=== PATIENT | male | born 1955 | race African-American/Black ===

== ENCOUNTER 2021-03-13 12:30 | Emergency (ER) | payer OTHER ==
[~2021-03-13] VITALS: Ht 165.1 cm; Wt 58.1 kg
--- NOTE | ~2021-03-13 | EMS ---
[facility] [address] [place] [address] EMS Patient Care Report Name: ROMEL MAXWELL Room #: REG RICCI Neville#: [id number] Admission: 03/13/21 Attend Phys: Discharge: Date of : 51 Report #: [id number] THIS REPORT FOR: //name// Report Transmitted: 03/13/2021 13:58 EMS Care Summary [place], [place]/[facility] Incident [id number] @ 03/13/2021 11:29 Incident Location [address] [place] [address] Patient ROMEL MAXWELL Male, 65 Years 1955 Patient Address [address] [place] [address] [place] [id number] Patient History Hypertension (HTN),Alcohol Abuse, Patient Allergies Penicillin allergy, Patient Medications None Reported, Chief Complaint CONFUSION, STRANGE ACTIONS Disposition Transported No Lights/[place] Dispatch Reason Psychiatric Problem/Abnormal Behavior/Suicide Attempt Transported To [facility] Narrative UPON ARRIVAL, FAMILY AND DENTAL AMALGAM PROCESSOR IN HALLWAY OUTSIDE PT APT. THEY STATE PT HAS BEEN CONFUSED, DRINKING ALCOHOL FOR A COUPLE DAYS AND SMEARED FECES ON THE WALL IN HIS APT. THEY WOULD LIKE HIM EVALUATED. [facility] [address] [place] [address] EMS Patient Care Report Name: ROMEL MAXWELL Room #: DANIA Neville#: [id number] Admission: 03/13/21 Attend Phys: Discharge: Date of : 51 Report #: [id number] PT IS STANDING IN APT. PT IS ALERT AND COOPERATIVE. PT STATES HE IS FINE AND HE SHOULD BE ABLE TO DRINK AT HOME. PT DENIES PAIN OR TROUBLE BREATHING. PT DENIES FALLS OR INJURIES. PT DENIES DRUG USE. PT ADMITS TO DRINKING ALCOHOL YESTERDAY AND TODAY. PT DENIES SUICIDAL OR HOMICIDAL THOUGHTS. PT AMBULATING WITH HIS WALKER NO PROBLEM. SAT ON COT. NO PROBLEMS EN ROUTE. Initial Vitals @12:04P: 86,R: 14,BP: 124/76,Pain: 0/10,GCS: 14,SpO2: 100,Revised Trauma: 12, @11:54P: 86,R: 16,Pain: 0/10,GCS: 14, @12:17P: 84,R: 14,BP: 120/72,Pain: 0/10,GCS: 14,Revised Trauma: 12, Assessments @11:54MENTAL:Confused,Time Oriented,SKIN:HEENT:Head/Face: No Abnormalities,Neck/Airway: No Abnormalities,LUNG SOUNDS:General: No Abnormalities,Left Upper: No Abnormalities,Right Upper: No Abnormalities,Left Lower: No Abnormalities,Right Lower: No Abnormalities,ABDOMEN:General: No Abnormalities,Left Upper: No Abnormalities,Right Upper: No Abnormalities,Left Lower: No Abnormalities,Right Lower: No Abnormalities,PELVIS//GI:Incontinence,EXTREMITIES:Left Arm: No Abnormalities,Right Arm: No Abnormalities,Left Leg: No Abnormalities,Right Leg: No Abnormalities,PULSE:NEURO:No Abnormalities, Impression Behavioral/psychiatric episode Timeline 11:29,Call Received 11:29,Dispatch Notified 11:29,Dispatched 11:29,En Route 11:49,On Scene 11:53,At Patient 11:54,BP: / M,PULSE: 86,RR: 16 R,SPO2: Ox,ETCO2: ,BG: ,PAIN: 0,GCS: 14, 12:02,Depart Scene 12:04,BP: 124/76 M,PULSE: 86,RR: 14 R,SPO2: 100 Ox,ETCO2: ,BG: ,PAIN: 0,GCS: 14, 12:17,BP: 120/72 M,PULSE: 84,RR: 14 R,SPO2: Ox,ETCO2: ,BG: ,PAIN: 0,GCS: 14, 12:26,At Destination 12:41,Call Closed Disclaimer v1.1 Copyright 2020 [employer] This EMS Care Summary contains data elements from the applicable legal record [address] [address] EMS Patient Care Report Name: FOX MAXWELLONSO Room #: REG RICCI Neville#: [id number] Admission: 03/13/21 Attend Phys: Discharge: Date of : 51 Report #: [id number] (which may be displayed differently). It is designed to provide pertinent information for the following purposes: continuity of care, clinical quality, and state data reporting. The complete legal record is available to ED staff and administrators of the receiving hospital in [employer] Patient Tracker. All data is provided "as is."
[2021-03-13 13:08] LABS: HEMATOCRIT 35.1 % (42.0-52.0); HEMOGLOBIN 11.9 gm/dL (14.0-18.0); MCH 31.7 pg (26.0-34.0); MCHC 33.9 g/dL (28.0-37.0); MCV 93.5 fL (80.0-100.0); PLATELET COUNT 224 thou/uL (150-400); RBC 3.76 mil/uL (4.50-6.00); WBC 7.4 thou/uL (4.0-11.0)
[2021-03-13 13:12] LABS: CALCIUM 9.1 mg/dL (8.5-10.1); CREATININE 1.2 mg/dL (0.7-1.3); POTASSIUM 3.4 mmol/L (3.5-5.1)
[2021-03-13 13:18] LABS: ALBUMIN 3.1 g/dL (3.4-5.0); TOTAL BILIRUBIN 0.6 mg/dL (0.2-1.0); TOTAL PROTEIN 9.6 g/dL (6.4-8.2)
[2021-03-13 13:45] LABS: ABSOLUTE NEUTROPHILS 4.1 thou/uL (1.4-8.2)
[2021-03-13 14:27] LABS: URINE BILIRUBIN NEGATIVE (Negative); URINE BLOOD NEGATIVE (Negative); URINE CLARITY CLEAR; URINE COLOR YELLOW; URINE GLUCOSE-RANDOM* NEGATIVE (Negative); URINE KETONES NEGATIVE (Negative); URINE LEUKOCYTES-REFLEX NEGATIVE (Negative); URINE NITRITE-REFLEX NEGATIVE (Negative); URINE PROTEIN (DIPSTICK) NEGATIVE (Negative); URINE SPECIFIC GRAVITY <= 1.005 (1.005-1.035); URINE UROBILINOGEN 0.2 E.U./dl (0.2-1.0)
[2021-03-13 14:37] LABS: AMP/METHAMP Negative (Negative); BARBITURATES Negative (Negative); BENZODIAZEPINES Negative (Negative); COCAINE Negative (Negative); METHADONE Negative (Negative); OPIATES Negative (Negative); PCP Negative (Negative)
[2021-03-13] MEDS ORDERED: POTASSIUM20 PO (16:59)
[2021-03-13] MEDS ORDERED: VITAMIN B-1100 M2 PO (16:59)
[2021-03-13] MEDS ORDERED: SYNTHROID50 MCG PO (17:00)
[2021-03-13] MEDS ORDERED: NORVASC10 MG PO (17:00)
[2021-03-13] MEDS ORDERED: HYDROCHLOROTHIA25 M1 PO (17:00)
[2021-03-13] MEDS ORDERED: FOLIC ACID1 MG PO (17:01)
[2021-03-13 17:20] VITALS: BP 110/58
--- NOTE | 2021-03-14 15:19 | EKG ---
[address] [address] ELECTROCARDIOGRAM REPORT Name: ROMEL MAXWELL Room #: JACQUIE Neville#: [id number] Admission: 03/13/21 Attend Phys: Discharge: 03/13/21 Date of : 51 Report #: [id number] [facility] ED Test Date: 2021-03-13 Test Time: 14:57:14 Pat Name: ROMEL MAXWELL Department: Room: Gender: Editor: JAMES : 1955 Requested By: Dorian Emerson Order Number: [id number] MD: Diego Granda Measurements Intervals [place] Rate: 86 P: 69 NV: 137 QRS: 48 QRSD: 78 T: 213 QT: 357 QTc: 427 Interpretive Statements Sinus rhythm Borderline repolarization abnormality No previous ECG available for comparison Electronically Signed On 03-14-2021 15:19:09 CDT by Diego Granda [email or web address] <ELECTRONICALLY SIGNED> By: Diego Granda MD, [facility] 03/14/21 1519 1457 1457 Diego Granda MD, FACC /EPI
== END 2021-03-13 17:42 ==
LOC: ER 12:30
PROVIDERS: Physician Assistant
DX: F10.129 Alcohol abuse with intoxication, unspecified (principal); Z20.822 Contact with and (suspected) exposure to COVID-19; I10 Essential (primary) hypertension; Z88.0 Allergy status to penicillin; Y90.9 Presence of alcohol in blood, level not specified

== ENCOUNTER 2021-03-13 16:06 | Inpatient (IN) | payer OTHER ==
[~2021-03-13] VITALS: Ht 165.1 cm; Wt 60.7 kg
[2021-03-13] MEDS ORDERED: POTASSIUM20 PO (16:59)
[2021-03-13] MEDS ORDERED: VITAMIN B-1100 M2 PO (16:59)
[2021-03-13] MEDS ORDERED: HYDROCHLOROTHIA25 M1 PO (17:00)
[2021-03-13] MEDS ORDERED: SYNTHROID50 MCG PO (17:00)
[2021-03-13] MEDS ORDERED: NORVASC10 MG PO (17:00)
[2021-03-13] MEDS ORDERED: FOLIC ACID1 MG PO (17:01)
[2021-03-13 18:17] VITALS: BP 129/77
--- NOTE | 2021-03-13 18:54 | NUR ---
1825 NEW ADMIT FROM HOME BROUGHT TO ER FOR BIZZARE BEHAVIORS; PATIENT'S HOME HAD FECES AND URINE ALL OVER APARTMENT. PATIENT HAS A HX OF ALCOHOL ABUSE HIS ALCOHOL LEVEL WAS 154 AT NOON TODAY IN ER. PATIENT APPEARANCE WAS UNKEPT CLOTHES WAS SOAKED WITH URINE AND BLUE SLIPPERS HAD FECES ON THEM. PATIENTS ABDOMEN SOFT BOWEL SOUNDS PRESENT PATIENTS LUNGS CLEAR. PATIENT CAME TO UNIT WE GAVE HIM HIS DINNER THEN PUT HIM IN THE SHOWER AND WASHED HIS CLOTHING. PATIENT ALERT ORIENTED TIMES 4 DENIES SI/HI/AH/VH AT PRESENT. WILL CONTINUE TO MONITOR PATIENT FOR SAFETY AND BEHAVIORS.
[2021-03-13 20:32] VITALS: BP 105/68
[2021-03-13 20:46] LABS: CHOLESTEROL 177 mg/dL (<200); HDL CHOLESTEROL 28 mg/dL (>40); LDL CHOLESTEROL 118 mg/dL (<100); TC:HDL 6.3 Ratio (Not establshd); TRIGLYCERIDE 159 mg/dL (<150); VLDL 32 mg/dL (<40)
[2021-03-13 22:23] VITALS: BP 105/68
[2021-03-13 23:40] VITALS: BP 122/74
[2021-03-14 03:41] VITALS: BP 128/79
--- NOTE | 2021-03-14 04:55 | NUR ---
Assumed care on 03/13/21 @ 1900, seated in the day room. Signed admission paperwork, posed for photo for chart. Cooperative with assessment, compliant with medication. A&Ox4, Retired to bed @ HS after snacks. Will continue to monitor for safety and comfort as per unit protocol.
[2021-03-14 05:37] LABS: FOLIC ACID 13.8 ng/mL (8.6-58.9)
[2021-03-14 06:09] LABS: GLYCOHEMOGLOBIN (HGB A1C) 5.5 % (4.8-5.6)
[2021-03-14 10:25] VITALS: BP 118/74
[2021-03-14 10:39] VITALS: BP 118/74
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
--- NOTE | 2021-03-14 14:27 | NUR ---
1420 RESUMMED CARE ALLIE OVERNIGHT SHIFT THIS AM, PATIENT IN ROOM LYING QUIET. PATIENT GOT UP CAME TO DAY ROOM FOR BREAKFAST TOOK MEDICATION WITHOUT INCIDENCE. PATIENT DENIES SI/HI/AH/VH AT PRESENT PATIENT HAS NO TREMORS AND STATES HE SLEPT VERY WELL. PATIENTS ABDOMEN SOFT BOWEL SOUNDS PRESENT PATIENTS LUNGS CLEAR. PATIENT CALM COOPERATIVE PARTICIPATED IN GROUPS AFFECT BRIGHTER THEN YESTERDAY. WILL CONTINUE TO MONITOR PATIENT FOR SAFETY AND BEHAVIORS.
--- NOTE | 2021-03-14 15:00 | NUR ---
JEFF and Dr. Fan spoke to patient's daughter Vandana Briones who informed that she is willing to be involved with patient's care but he has told her he "does not want her in his business." JEFF and Dr. Fan spoke to patient who informed that he does want his daughter involved. He gave verbal permission to speak with her. Vandana informed that she will be in [place] from March 18 thru March 28. She asked that we contact her sister Sylvia Briones [phone] during this time. JEFF completed assessment and treatment plan. SW team will remain available.
[2021-03-14 19:46] VITALS: BP 128/78
[2021-03-14 23:00] VITALS: BP 132/76
[2021-03-15 03:00] VITALS: BP 124/81
[2021-03-15 09:31] VITALS: BP 115/65
[2021-03-15 10:15] VITALS: BP 115/65
--- NOTE | 2021-03-15 11:26 | NUR ---
1125 RESUMMED CARE FROM OVERNIGHT SHIFT THIS AM, PATIENT IN ROOM LYING QUIET IN BED. PATIENT ALERT ORIENTED TIMES 3 PATIENT DENIES SI/HI/AH/VH AT PRESENT. PATIENT HAS NOT DISPLAYED ANY TREMORS WALKED WITH OT DID WELL. PATIENTS ABDOMEN SOFT BOWEL SOUNDS PRESENT, PATIENTS LUNGS CLEAR. PATIENT CALM COOPERATIVE PARTICIPATES IN GROUPS WILL CONTINUE TO MONITOR PATIENT FOR SAFETY AND BEHAVIORS.
--- NOTE | 2021-03-15 12:35 | NUR ---
Nutrition: Vitamin D 33. REC vitamin D supplementation
[2021-03-15 17:06] LABS: HIV ANTIBODY Non Reactive (Non Reactive)
[2021-03-15 19:57] VITALS: BP 125/74
[2021-03-15 21:29] VITALS: BP 125/74
--- NOTE | 2021-03-15 21:53 | NUR ---
PT CARE WAS RESUMED AT 1900. PATIENT WAS SITTING IN THE DAY AREA VERY CALM. HE DENIES PAINS AT THIS TIME. ABLE TO VERBALIZE NEED. HE DENIES ANY SI/AVH/ HI AND NO SKIN ISSUED NOTED AT THIS SHIFT. LUNGS ARE CLEAR BS ACTIVE X 4QUADS. HE REQUESTED FOR HIS PRN TRAZODONE FOR SLEEP AND MED WAS ADMINISTED WITHOUT ANY CONCERN. HE SWALLOWED MED WHOLE. PT IS FALL PRECAUTION, NON SKID SOCK ON, BED WAS IN LOW POSITION, ALARM ON, BED IS LOCK AND SIDE RAILS ARE UP. NURSES CONTUNED TO MONITOR Q12 MINUTES PER PROTOCOL. URINALS AT REACH.
[2021-03-15 22:11] LABS: SYPHILIS AB Non Reactive (Non Reactive)
[2021-03-16 10:03] VITALS: BP 135/85
--- NOTE | 2021-03-16 13:59 | NUR ---
JEFF met with Pt in his room concerning DPOA paper work. Pt stated he wanted his daughters Michelle Briones and Sylvia Briones to be his DPOA's. Pt was able to explain what a DPOA was. Pt stated "It's for someone to make decisions for me". JEFF contacted Michelle about being the Pt's DPOA. Michelle was in agreement. JEFF contacted Sylvia also. Sylvia did not answer, a message requesting a call back was left on the VM. Pt was able to complete the DPOA paperwork and it was notirized. A copy was given to the Pt and another placed in the chart. JEFF emailed a copy to Michelle at [email or web address]
--- NOTE | 2021-03-16 16:11 | NUR ---
NOTED TO BE GUARDED AND DEFENSIVE WHEN INTERACTING WITH NURSING STAFF WHEN PROMPTED TO GET OUT OF BED TO ATTEND AM GROUP STATES "WHY I'M NOT LIKE THOSE OTHER PEOPLE THEY DON'T EVEN KNOW AURORAER OWN NAME" LIMITED INSIGHT INTO INCIDENTS LEADING TO ADMIT STATING "I'M NOT SURE WHY I AM HERE" DENIES SI/SH/HI. DENIES ACUTE ANXIETY STATING "THE ONLY THING THAT MAKES ME NERVOUS IS BEING HERE-I WOULD BE FINE IF I WASN'T HERE" DENIES PAIN/DISCOMFORT-GAIT SLOW BUT STEADY WITH USE OF ROLLER WALKER-DENIES N/V-DIAPHORESIS,TREMOR. APPETITE GOOD. BP 135/80-REPORTS SLEEP "GOOD" REFUSED 0900 GROUP-DID COME TO PM RT GROUP BUT SAT AWAY FROM PEERS WITH NO ACTIVE PARTICIPATION NOTED.
[2021-03-16 19:47] VITALS: BP 142/77
[2021-03-16 20:00] VITALS: BP 135/85
--- NOTE | 2021-03-17 01:50 | NUR ---
PT CARE WAS RESUMED AT 1900. PATIENT IS ALERT AND ORIENTED. AMBULATES AND ABLE TO VERBALIZE SOME NEED. LUNGS ARE CLEAR ON ASSESSMENT AND HE DENIES,SI/AVH,HI, AND PAINS . NO SKIN ISSUED NOTED THIS SHIFT.CONTINENT OF B/B BS IS ACTIVE X4 QUAD.BED IS LOW, ALARM IN PLACE, PT HAS A NON SKID SOCKS ON. NO CONCERN NOTED AT THIS TIME. Q [address] AND SNACK WAS OFFERED.
[2021-03-17 09:14] VITALS: BP 107/70
--- NOTE | 2021-03-17 16:32 | NUR ---
PATIENT HAS BEEN UP, AND OUT ON THE UNIT, AMBULATE WITH ASSIST OF ROLLER WALKER. PATIENT IS ALERT, AND ORIENTED X 3-4, ABLE TO VOICE NEED. PATIENT TOOK ALL MEDICATION WHOLE WITHOUT DIFFICULTY. HE IS EATING MEALS, AND DRINKING FLUID WELL. PATIENT DENIES SUICIDA/HOMICIDAL IDEATION, HE DENIES DEPRESSION/ANXIETY, DENIES HAVING PHYSICAL PAIN. AFFECT IS FLAT/BLUNTED, MOOD IS DEPRESSED. PATIENT CAN BE IRRITABLE AT TIMES. HE PARTICIPATES IN GROUP THERAPY, CAN BE INTRUSIVE AT TIMES. NO SIGN OF ACUTE DISTRESS NOTED AT THIS TIME, WILL MONITOR FOR SAFETY.
[2021-03-17 19:32] VITALS: BP 151/67
[2021-03-17 21:30] VITALS: BP 151/67
--- NOTE | 2021-03-18 03:15 | NUR ---
PATINET CARE WAS RESUMED ON 1899. HE IS IN THE DINING AREAS SOCILIZING WITH OTHER PATINETS. HE DENIES ANY PAINS,SI/ AVH,HI . LUNGS ARE CLEAR BS ACTIVE X 4 QUADS. BED IS LOW,LOCKED AND ALARN IN PLACE. NO ISSUE NOTED THIS SHIFT WITH PATINETS.ABLE TO VERBALIZE ANY CONCERNS.STAFF CONTINUES TO MONITOR Q 12 PER PROTOCOL.
--- NOTE | 2021-03-18 06:36 | NUR ---
PT SLEPT THROUGH THE NIGHT.HE WAS MONITOTRED Q12 MINUTES PER UNIT PROTOCOL. CALM AND NO ISSUES IDENTIFIED. HE WOKE UP THIS AM USING HIS WALKER, SOCKS ON, AND WALKED OUT OF HIS RROM SHIRTLESS. NURSE APROACHED HIM FOR ASSISTANCE AND HE WAS USING SOME SLUR 'F'WORD. ANOTHER NURSE BROUGHT A SHIRT WHILE THIS NURSE WAS DIRECTING HIM BACK INTO THE ROOM. HE WAS ASSISTED WITH TRANSFER AND WEARING ON HIS SHIRT. CONTINUE CARE AND MONITOR
[2021-03-18 10:10] VITALS: BP 123/66
--- NOTE | 2021-03-18 18:06 | NUR ---
Alert and orientated X4. Slightly irritated this AM but calm and pleasant remainder of day. Stayed calm when another pt grabbed his hand and cup of H20. Denies SI/HI. Breath sounds clear. Reg HR auscultated. Color pink with brisk capillary refill and palpable peripheral pulses. Incontinent this AM, continent remainder of day. Active bowel sounds over soft, flat abdomen. States he had BM this AM. States diarrhea resolved. Ambulating with regular, steady gait with walker.
[2021-03-18 20:56] VITALS: BP 125/85
[2021-03-18 21:10] VITALS: BP 125/85
--- NOTE | 2021-03-19 03:34 | NUR ---
MR. MAXWELL' CARE WAS ASSUMED 03/18/21 @ 1900. HE WAS SPENDING THE EVENING IN THE DAYROOM WATCHING TELEVISION, "CAN I HAVE THE REMOTE, I NEED THE MUSIC AWARDS, THAT'LL BE SOME GOOD ENTERTAINMENT FOR TONIGHT." PATIENT IS A & O X 4. SKIN WARM AND DRY, RESPIRATIONS EVEN AND NON-LABORED, LUNGS CTA. ABD SOFT AND NON-TENDER, NO FURTHER REPORTS OF DIARRHEA. PATIENT WAS CALM, COOPERATIVE AND INTERACTIVE THIS EVENING. DENIES SI/HI/AVH. HE WAS WANTING SOMETHING SWEET TO DRINK, ASKING FOR SODA. MADE HIM A CUP OF TEA WITH SWEET & LOW. AFTER THE TELEVISION SHOW WAS OVER HE VOLUNTARILY WENT TO BED, VOCALIZED NO OTHER NEEDS. STAFF WILL CONTINUE TO ROUND Q 12 MIN PER [facility] POLICY AND INTERVENE NEEDED. STAFF JT DIAZ
[2021-03-19 09:35] VITALS: BP 122/71
--- NOTE | 2021-03-19 11:33 | NUR ---
RT Progress Note- Adithya has been present in the milieu each day, however, he has been avoidant of groups. He explains that this is because, "these people aren't like me. I don't need to be here." Adithya had not participated in recreation therapy since his admission, however participated AM of 03/19 with encouragement from other staff. RESEARCH FELLOW will continue to encourage this.
--- NOTE | 2021-03-19 13:41 | NUR ---
Alert and orientated X4. Denies SI/HI. States he wants to go home. Breath sounds clear. Reg HR auscultated. Color pink with brisk capillary refill and palpable peripheral pulses. No edema noted. Incontinent of large amt yellow urine, also continent of yellow urine. Active bowel sounds over soft, flat abdomen. States he had formed BM last night. AMbulates with walker with regular, steady gait. Currently resting in bed without s/o distress.
--- NOTE | 2021-03-19 14:16 | NUR ---
03/18/[address] Roa paticipated in a family meeting with Sylvia Ross and the Pt. Treatment and discharge recommedations were discussed during this meeting. It was recommended that Pt go into a usp setting as it would provide needed structure to increase the Pt's quality of life. Pt did not agree or disagree with the plan. However Pt expressed that he was able to care for himself. Although concerns of ETOH abuse and self care issues were discussed with the Pt. Vandana and Sylvia both expressed agreement with the need for a LTC placement. JEFF will send out referrals to LTC facilities. JEFF will continue to follow
--- NOTE | 2021-03-19 17:40 | NUR ---
Referral sent to the following: [facility] Kierra Rizvi will follow up
[2021-03-19 20:56] VITALS: BP 122/71
--- NOTE | 2021-03-20 04:43 | NUR ---
CARE ASSUMED AT 1900 03/20/2021. PATIENT WAS A&O X4, SKIN W&D, LUNGS CTS, HEART RRR. AMBULATORY WITH WALKER WITHOUT DIFFICULTY. CALM, COOPERATIVE, FOCUSED ON DISCHARGE, "I NEED TO TALK TO THE DOCTOR IN THE MORNING TO FIND OUT WHEN I GET TO GO HOME." ATE 100% OF HS SNACK. NO DISRUPTIVE BEHAVIORS DISPLAYED. STAFF WILL CONTINUE TO MONITOR PER [facility] PROTOCOL, AND INTERVENE NEEDED.
[2021-03-20 08:49] VITALS: BP 119/62
--- NOTE | 2021-03-20 17:43 | NUR ---
Assumed pt care at 0700. pt was alert and oriented x4. Assessments completed, vss. pt took meds whole no difficulty noted. Ambulates with a walker. No sign acute distress noted upon assessments. No c/o pain, denies si/hi. Participated in groups. calm and co-operative with care. Meds administered as ordered. Pt stated his goal is to go home. At this time pt is in the day room watching TV. will continue to monitor.
[2021-03-20 20:17] VITALS: BP 138/80
--- NOTE | 2021-03-21 02:28 | NUR ---
ASSUMED CARE OF PATIENT AT 1900 03/20/2021, PATIENT IN DAYROOM WATCHING TELEVISION. A&O X4, SINK WARM & DRY, LUNGS CTA, RESP NON-LABORED, HEART RRR, ABD SOFT + BS, DENIES N/V/D, NO COUGH. PATIENT REPORTED HAVING VISITORS TODAY AND THINGS WERE GOING VERY GOOD. DENIES SI/HI, AVH. INTERACTING WITH STAF AND PEERS. MR. MAXWELL IS VERY OBSERVANT OF PEERS AND REPORTS HOW THEY HAVE BEEN DURING THE DAY. HIS MOOD HAS BEEN CALM AND COOPERATIVE, WITH A PLESANT AFFECT. HAS BEEN RESTING WELL AND STAFF WILL CONTINUE TO MONITOR Q 12 MIN PER [facility] PROTOCOL AND INTERVENE NEEDED.
[2021-03-21 09:01] VITALS: BP 122/54
[2021-03-21 10:18] VITALS: BP 122/54
--- NOTE | 2021-03-21 10:42 | NUR ---
ASSUMED CARE AT 0700 THIS MORNING. PT. STABLE. HE IS OUT FOR BREAKFAST AND MORNING GROUP. HE IS AAOX4, PLEASANT AND COOPERATIVE. HE TAKES HIS MORNING MEDICATIONS WHOLE WITHOUT PROBLEMS NOTED. DR. MARI AND Heath TOVAR N.P. BOTH SPOKE WITH PATIENT THIS MORNING. HE DOES RETURN TO HIS ROOM AFTER GROUPS AND RESTS IN HIS BED. WILL CONTINUE TO MONITOR.
--- NOTE | 2021-03-21 16:22 | NUR ---
SW met with Pt on to discuss placement. Pt believes he is able to return to his home and live independently. Pt showed no insight concerning self care and safety. Sw discussed issues of Pt incontince of bowels and conditions of his home. Pt admitted that having stool all over his apartment was not hygenic and unhealthy. Pt minimized the concerns saying he only had a " little issue with diarrhea". SW provided emotional support to the Pt. Pt was informed the recommendation was for 24hr supervision and support. Pt believes a placement will be like prision. SW educated Pt on fpc, Pt rights, and encouraged positive thinking. Sw will continue to follow
--- NOTE | 2021-03-21 17:03 | NUR ---
JEFF faxed referral to [facility]
[2021-03-21 19:29] VITALS: BP 132/76
[2021-03-21 22:48] VITALS: BP 132/76
--- NOTE | 2021-03-21 23:06 | NUR ---
Assumed care from day nurse at 1910, Pt is A/O x 3, initially sitting in day room watching tv and conversing with staff, Pt affect is pleasant, lungs clear, HRR, abd soft non tender, denies pain, pt teaching on Trazadone, pt received trazadone last night, asked him if he would like his dose again tonight since it's PRN, Pt was okay with that. no other HS medications prescribed. Will continue to monitor throughout shift.
[2021-03-22 08:57] VITALS: BP 120/76
[2021-03-22 11:01] VITALS: BP 120/76
--- NOTE | 2021-03-22 15:12 | NUR ---
Assumed pt care at 0700. pt was alert and oriented x4. Assessments completed, vss. pt was calm and co-operative with care. pt took meds whole, no difficulty noted. Denies si/hi. At this time no c/o pain. pt ambulates with walker. No of sign acute distress noted upon assessments. Meds administered as ordered. PT is goal directed towards going home. Will continue to monitor pt.
[2021-03-22 19:40] VITALS: BP 127/76
--- NOTE | 2021-03-23 00:45 | NUR ---
CARE OF PATIENT ASSUMED AT 1900 03/22/2021. MR. MAXWELL WAS SITTING IN THE DAYROOM WATCHING TELEVISION. RELAYED HE HAD A GOOD DAY, HIS DAUGHTER HAD COME TO VISIT. A&O X 4, LUNGS CTA, HEART SOUNDS RRR, SKIN WARM AND DRY. PATIENT CURRENTLY INCONTIENT OF URINE. REPORTED BM THIS A.M. AMBULATORY IWTH WALKER. COMPLIANT WITH HS SNACK AND TOOK PRN SLEEP MEDICATION. CALM AND COOPERATIVE, NO NEGATIVE BEHAVIORS, HAS RESTED WITHOUT DISTURBANCE. STAFF WILL CONTINUE TO MONITOR PER [facility] PROTCOL.
--- NOTE | 2021-03-23 04:16 | NUR ---
PATIENT INCONTINENT. BRIEF AND CLOTHING CHANGED, PLACED IN BLUE SCRUB PANTS AND YELLOW T-SHIRT. URINAL AT BEDSIDE. PATIENT'S PERSONAL CLOTHING WAS LAUNDERED AT EARLIER IN SHIFT. PATIENT BECAME UPSET "THERE WAS PHONE NUMBERS IN MY SHIRT POCKET. YOU PEOPLE HERE DON'T GIVE A DAMN SHIT ABOUT ANYBODY ELSE'S STUFF, JUST THROW IT AWAY." OBTAINED HERSON'S DAUGHTERS PHONE NUMBERS FROM HIS CHART AND WROTE THEM DOWN AGAIN FOR HIM AND PLACED THEM ON HIS BEDSIDE TABLE. HE DE-ESCALATED HIMSELF AND WENT BACK TO BED.
[2021-03-23 09:27] VITALS: BP 157/88
[2021-03-23 09:29] VITALS: BP 157/88
--- NOTE | 2021-03-23 09:50 | NUR ---
Assumed pt care at 0700. pt was alert and oriented x4. Assessments completed, vss. pt took his meds whole, no didfficulty noted. ambulates with a walker. Denies si/hi. There is no c/o pain at this time. NO sign of acute distress noted upon assessments. PT goals was to talk with the doctor to get d/c. Pt meds were administered as ordered. Dr Fan notified of pt request. AT this time pt is in the day room. will continue to monitor pt.
--- NOTE | 2021-03-23 17:43 | NUR ---
JEFF spoke with Meghann hahn [facility]. Meghann informed the Pt has been accepted at [facility]. JEFF spoke with te Pt's daughter/DPOA Sylvia concerning the matter. Sylvia was in agreement with the placement at [facility]. Discharge set for 03/24/2021 @1000am. [facility] will provide transportation
--- NOTE | 2021-03-23 17:46 | NUR ---
SW encounter Pt on the unit. Pt was upset and on the phone with Vandana. Pt was asking SW about his discharge. SW informed that Pt had been accepted to [facility]. Pt asked what the place was and was it a custodial. SW confirmed it was a custodial. Pt became upset raising his voice and asking about his social security check. Pt then handed SW the cordless phone. On the phone was Vandana. SW spoke with Vandana and answered questions concerning the placement. Vandana confirmed she had spoken with Vandana and been informed of the information. SW handed the phone back to the Pt. Pt ended the phone call. SW sat with the Pt and allowd Pt to vent. Pt expressed being unhappy with going to a custodial. Pt also expressed SW was being "sneaky". SW processed with the Pt that he was informed of the plan. SW allowed Pt time alone to continue to deescalate.
--- NOTE | 2021-03-23 17:53 | NUR ---
JEFF recieved a call from Olivia Ling, [facility] worker. JEFF informed Olivia of the discharge for the Pt.
[2021-03-23 19:42] VITALS: BP 145/84
[2021-03-23 20:30] VITALS: BP 145/84
--- NOTE | 2021-03-23 22:20 | NUR ---
PT CARE WAS RESUMED AT 1900 AND HE IS ALEART AND ORINETED. ABLE TO VERBALISE NEED. HE AMBULATES WITH WALKER AND INCONTINET OF BLADDER. HE DENIES PAINS, SI/AVH/ HI .LUNGS ARE CLEAR BS ACTIVE X QUADS, ABD IS SOFT FLAT AND NONE TENDER.PT HAD A BM TODAY AND HE DENIES ANY DISCOMFORT AT THIS TIME. NO EDEMA. NEED ASSISTANCE WITH PER-CARE. URINAL AT BED SIDE. PT SAID HE IS GING HOME NEXT DAY BUT DOES NOT KNOW WHERE HE IS GOING BUT SOME KIND OF A PLACE.NURSE ARRAYED HIS ANXIETY AND TOLD HIM HE IS GOING TO ANOTHER FACILITY FOR CONTINUITY OF CARE, AND HE WAS PLEASED.BED IN LOW POSITION, LOCKED AND ALARM IN PLACE. NONE SKID SOCKS ON. Q12 MINUTES CHECKS IS ONGOING,PT IS CALM AND NO CONCERN NOTED AT THIS TIME. CONTINUE CARE.
[2021-03-24 09:07] VITALS: BP 120/65
--- NOTE | 2021-03-24 09:15 | NUR ---
PATIENT HAS BEEN UP, AND OUT ON THE UNIT, PARTICIPATES IN GROUP THERAPY. PATIENT TOOK ALL MEDICATION WHOLE WITHOUT DIFFICULTY. HE IS EATING MEALS, AND DRINKING FLUID WELL. PATIENT DENIES SUICIDAL/HOMICIDAL IDEATION, HE DENIES DEPRESSION/ANXIETY. PATIENT DENIES HAVING PHYSICAL PAIN. AFFECT IS BRIGHT, MOOD IS HAPPY. NO SIGN OF ACUTE DISTRESS NOTED AT THIS TIME, PATIENT DISCHARGING TO [facility] TODAY, WILL MONITOR FOR SAFETY.
[2021-03-24] MEDS ORDERED: NORVASC5 MG PO (09:24)
[2021-03-24] MEDS ORDERED: TRAZODONE HCL50 MG PO (09:24)
[2021-03-24] MEDS ORDERED: CALTRATE-600 W1 EACH PO (09:24)
[2021-03-24] MEDS ORDERED: B-12500 MCG PO (09:25)
[2021-03-24] MEDS ORDERED: VITAMIN D3125 MC1 PO (09:26)
[2021-03-24] MEDS ORDERED: PRENATAL PO (09:27)
--- NOTE | 2021-03-25 20:50 | D ---
[facility] [place] [address] DISCHARGE SUMMARY Name: ROMEL MAXWELL Room #: 528B-B DIS IN M.R.#: [id number] Admission: 03/13/21 Attend Phys: Kim Fan DO Discharge: 03/24/21 Date of : 51 Report #: [id number] THIS REPORT FOR: cc: MASSIMO - No family physician/PCP FAM - No family physician/PCP Kim Fan DO ~ DOC #: [id number] KIM Fan DO DATE OF SERVICE: 03/24/2021 INPATIENT PSYCHIATRIC DISCHARGE SUMMARY ATTENDING PSYCHIATRIST: Kim Fan DO. FLASH WELDING MACHINE OPERATOR: At time of discharge, Dandy Lay M.D. DISCHARGE DIAGNOSES: Major neurocognitive disorder, etiology unspecified with behavioral disturbance, improved; substance use disorder for alcohol. Medical diagnoses at discharge include hypertension, on Norvasc; hypothyroidism, on Synthroid. The patient will be discharged to [facility] for long-term memory care. His [employer] has enacted his daughter, Vandana, as his DPOA. The patient has a regular diet. In addition, the patient's diet is ensure with dinner. DISCHARGE MEDICATIONS: Include levothyroxine 50 mcg oral daily for hypothyroidism; folic acid 1 mg oral daily for supplementation; amlodipine 5 mg oral daily for hypertension, hold if systolic BP is less than 100; trazodone 50 mg oral at bedtime p.r.n. for sleep; calcium carbonate with vitamin D3, 500 mg oral with 600 international units of vitamin D, 3 times a day; cyanocobalamin 1000 mcg oral daily; cholecalciferol 5000 International Units oral daily; vitamin oral daily. LABORATORY DATA: Significant laboratories this admission are as follows: Hematology on 03/13/2021 showed a H and H of 11.9 and 35.1, white count 7.4, platelet count 224. Chemistry: Sodium 133, potassium 3.4, chloride 97, bicarbonate 24, anion gap 12, BUN 10, creatinine 1.2, hemoglobin A1c of 5.5, calcium 9.1, total bilirubin 0.6, AST 94, ALT 47, alkaline phosphatase 152, total protein 9.6, which was high. Albumin low at 3.1. Triglycerides 159. Cholesterol 177, LDL 118, HDL 28. B12 level 492. Vitamin D of 33.1, folate 13.8. TSH slightly elevated at 4.801. Urinalysis this admission is negative. Toxicology negative. Serum alcohol on admission was 157. The patient did have an uneventful detoxification. HIV, COVID-19, syphilis were all nonreactive or negative this admission. [address] [address] DISCHARGE SUMMARY Name: ALISSAROMEL Room #: 528B-B DIS IN M.R.#: [id number] Admission: 03/13/21 Attend Phys: Kim Fan DO Discharge: 03/24/21 Date of : 51 Report #: [id number] REASON FOR ADMISSION: Back on the 03/13/2021, a 65-year-old black male brought in by EMS. Apparently, he had a welfare check at his home by [facility] social sciences research scientist. She found feces on the patient in inappropriate places throughout the apartment. There was lack of food provisions and the need for Geriatric Psychiatry evaluation and possible placement was felt by the social sciences research scientist and CIT officer involved. HOSPITAL COURSE: The patient was admitted under a 96-hour hold initially. The patient did agree to be here voluntarily detained with his daughter, Vandana, as his DPOA. During the hospitalization, the patient's mood and interactions improved with just structure, turned out he has had a significant amount of time in the [place] [employer]. He has had longstanding poor relationship with his daughters; the one Vandana was willing to be his DPOA out of commitment to her father, which was judged to be hu and sincere. We did find him placement and I do not think he can live on his own due to his dementia. [facility] Mental Status Examination was this admission. CONDITION AT DISCHARGE: Stable. No SI, no HI. VITAL SIGNS: On day of discharge are as follows: Temperature 36.2, pulse 83, respirations 18, BP 120/65, O2 sat 95%. MUSCULOSKELETAL: Assisted gait with walker, wearing glasses, fair hygiene. MENTAL STATUS EXAMINATION: This is a well-developed black male appearing stated age. Attention fair. Concentration limited. Speech - Normal rate, amount and tone. Thought process - linear, goal directed. Thought content focused on discharge, but concerns about being placed. Denied suicidal or homicidal ideation, auditory or visual type hallucinations. Mood was congruent, restricted. Otherwise EKG this admission done on 03/13/2021, ventricular rate 86, interval 137 milliseconds, QT 357 milliseconds, QTc 427 milliseconds and sinus rhythm. Memory not formally tested at the time of discharge. Insight limited. Judgment limited. Fund of knowledge below average. Prognosis for this patient is guarded given having a neurodegenerative disorder at an unfortunately relatively early age. DO AGUSTINA Styles/YAHIR/PORSHA [address] [address] DISCHARGE SUMMARY Name: ROMEL MAXWELL Room #: 528B-B DIS IN M.R.#: [id number] Admission: 03/13/21 Attend Phys: Kim Fan DO Discharge: 03/24/21 Date of : 51 Report #: [id number] <ELECTRONICALLY SIGNED> By: Kim Fan DO 03/25/212049 1918 23 Kim Fan DO /nt
== END 2021-03-24 10:30 | DRG 884 ==
LOC: 4N 16:06 → SBH 16:43
PROVIDERS: ADMIT Psychiatry & Neurology Psychiatry; ATTEND Psychiatry & Neurology Psychiatry
DX: F01.51 Vascular dementia, unspecified severity, with behavioral disturbance (principal); F10.239 Alcohol dependence with withdrawal, unspecified; F29 Unspecified psychosis not due to a substance or known physiological condition; I10 Essential (primary) hypertension; E03.9 Hypothyroidism, unspecified; F14.90 Cocaine use, unspecified, uncomplicated; Z88.0 Allergy status to penicillin
CPT/HCPCS: 10880